=== PATIENT | female | born 1945 | race Caucasian/White ===

== ENCOUNTER → 2019-05-28 | Emergency (ER) | payer OTHER ==
[~2019-05-28] VITALS: Ht 152.4 cm; Wt 49.9 kg
[~2019-05-28] MED LIST: ATORVASTATIN CA10 MG PO; SERTRALINE20 MG/1 ML PO; ZANTAC150 M3 PO; ZESTRIL20 MG PO; [UNRECOGNIZED DRUG - OTHER] PO
== END | disposition left against medical advice (07) ==
LOC: ER 08:34
DX: I61.8 Other nontraumatic intracerebral hemorrhage (principal); I10 Essential (primary) hypertension; R27.8 Other lack of coordination; I69.398 Other sequelae of cerebral infarction; F41.8 Other specified anxiety disorders